=== PATIENT | male | born 1950 | race Caucasian/White ===

== ENCOUNTER 2022-05-03 05:10 | Emergency (ER) | payer MEDICARE ==
[~2022-05-03] VITALS: Ht 190.5 cm; Wt 111.0 kg
[2022-05-03] MEDS ORDERED: AMOX/K CLAV875 M1 PO (05:50)
[2022-05-03] MEDS ORDERED: LORTAB 1010 MG PO (05:50)
[2022-05-03] MEDS ORDERED: FLOXIN OTIC0.3 % AS (05:50)
[2022-05-03 05:54] VITALS: BP 144/78
== END 2022-05-03 06:01 | disposition home or self-care (01) ==
LOC: ED 05:10
DX: H66.92 Otitis media, unspecified, left ear (principal); I10 Essential (primary) hypertension

== ENCOUNTER → 2022-07-15 | Day surgery (SDC) | payer MEDICARE ==
[~2022-07-15] VITALS: Ht 190.5 cm; Wt 113.4 kg
[~2022-07-15] MED LIST: AMOX/K CLAV875 M1 PO; FLOXIN OTIC0.3 % AS; KAPSPARGO SPRIN25 MG; LORTAB 1010 MG PO; ROSUVASTATIN CA20 MG; SERTRALINE100 MG PO; XARELTO20 MG PO
[2022-07-15 09:19] VITALS: BP 126/96
== END | disposition home or self-care (01) ==
LOC: ENDO 06:54 → ORM 08:30
PROVIDERS: ATTEND Surgery
PROC: 0DBF8ZX Excision of Right Large Intestine, Via Natural or Artificial Opening Endoscopic, Diagnostic (ICD-10-PCS; principal; 2022-07-15)
PROC: 0DBL8ZX Excision of Transverse Colon, Via Natural or Artificial Opening Endoscopic, Diagnostic (ICD-10-PCS; 2022-07-15)
DX: Z12.11 Encounter for screening for malignant neoplasm of colon (principal); D12.2 Benign neoplasm of ascending colon; D12.3 Benign neoplasm of transverse colon; K57.30 Diverticulosis of large intestine without perforation or abscess without bleeding; K64.8 Other hemorrhoids; I10 Essential (primary) hypertension; I48.91 Unspecified atrial fibrillation; F32.A Depression, unspecified; Z86.010 Personal history of colon polyps; Z80.0 Family history of malignant neoplasm of digestive organs; Z95.0 Presence of cardiac pacemaker

== ENCOUNTER 2022-11-19 12:02 | Emergency (ER) | payer MEDICARE ==
[2022-11-19] VITALS (9 sets, daily range): BP systolic 108–130; BP diastolic 79–98
[~2022-11-19] VITALS: Ht 190.5 cm; Wt 113.0 kg
[2022-11-19] MEDS ORDERED: METHOCARBAMOL500 MG PO (15:05)
[2022-11-19] MEDS ORDERED: PREDNISONE10 MG PO (15:05)
== END 2022-11-19 15:20 | disposition home or self-care (01) ==
LOC: ED 12:02
DX: S20.211A Contusion of right front wall of thorax, initial encounter (principal); S16.1XXA Strain of muscle, fascia and tendon at neck level, initial encounter; M47.812 Spondylosis without myelopathy or radiculopathy, cervical region; I10 Essential (primary) hypertension; W01.0XXA Fall on same level from slipping, tripping and stumbling without subsequent striking against object, initial encounter; Z95.0 Presence of cardiac pacemaker

== ENCOUNTER 2023-08-09 10:17 | Emergency (ER) | payer MEDICARE ==
[~2023-08-09] VITALS: Ht 190.5 cm; Wt 113.0 kg
[~2023-08-09 10:17] MED LIST changes: +METHOCARBAMOL500 MG PO; +PREDNISONE10 MG PO
[2023-08-09] MEDS ORDERED: CORTISPORIN OTI10 ML AS (11:43)
[2023-08-09 12:14] VITALS: BP 134/94
== END 2023-08-09 12:20 | disposition home or self-care (01) ==
LOC: ED 10:17
DX: H60.92 Unspecified otitis externa, left ear (principal); I10 Essential (primary) hypertension; I48.91 Unspecified atrial fibrillation; Z95.0 Presence of cardiac pacemaker